=== PATIENT | female | born 1940 | race Caucasian/White ===

== ENCOUNTER 2016-12-25 00:45 | Emergency (ER) | payer MEDICARE, BC ==
[2016-12-25 01:04] VITALS: TEMP 95.9
[2016-12-25] MEDS ORDERED: KETOROLAC TROMETHAMINE INJ 30 MG/ML VIAL IM ONE (01:23)
[2016-12-25] MEDS ORDERED: SIMETHICONE 80 MG TAB PO ONE (01:51)
--- NOTE | 2016-12-25 01:58 | RAD ---
Procedure: XR ABDOMEN 2 VIEWS SUPINE ERECT Exam Date: 12/25/2016 Ordering Provider: Fransisco Orellana Clinical Indication: right lower rib/flank pain Comparison: 11/08/2013 Findings: There is no small or large bowel distention. There is no pneumoperitoneum. There are no suspicious calcifications. Pelvic phleboliths. There is no acute skeletal abnormality. Impression: 1. No acute findings. Electronically signed by: Dallas Toledo MD 12/25/2016 1:57 AM CDT
[2016-12-25] MEDS ORDERED: MAGNESIUM HYDROXIDE 30 ML UD PO ONE (02:08)
--- NOTE | 2016-12-25 02:17 | ED.PDOC ---
History of Present Illness - General Chief Complaint: Back Pain or Injury Stated Complaint: upper back pain, short of breath Time Seen by Provider: 12/25/16 01:11 Source: patient, family Exam Limitations: no limitations - History of Present Illness Initial Comments: the patient is a 76-year-old female presenting to the emergency room secondary toright mid abdomen and flank discomfort present for the last 4-6 hours. No nausea vomiting or diarrhea. No fevers. No tenderness to palpation of the rib cage or the right upper quadrant. No costovertebral angle tenderness to palpation. No bruising. No rash. No recent illnesses. Timing/Duration: 4-6 hours Severity: moderate Improving Factors: nothing Worsening Factors: nothing Associated Symptoms: denies symptoms Allergies/Adverse Reactions: Allergies Doxycycline Allergy (Verified 03/31/14 10:32) Hydromorphone [From Dilaudid] Allergy (Verified 04/02/14 18:06) Naproxen [From Aleve] Allergy (Verified 03/31/14 10:19) Home Medications: Ambulatory Orders Albuterol Sulfate Nebs [Proventil Nebs] 0.083 inh PRN PRN 04/01/14 Magnesium [Magnesium 250 mg] 1 tab PO BEDTIME 04/01/14 Rivaroxaban [Xarelto] 10 mg PO QD #10 tab 04/04/14 Review of Systems - Review of Systems Constitutional: States: no symptoms reported EENTM: States: no symptoms reported Respiratory: States: no symptoms reported Cardiology: States: no symptoms reported Gastrointestinal/Abdominal: States: other - colic Genitourinary: States: no symptoms reported Musculoskeletal: States: back pain Skin: States: no symptoms reported Neurological: States: no symptoms reported Endocrine: States: no symptoms reported Past Medical History (General) - Patient Medical History Hx Seizures: No Hx Stroke: No Hx Asthma: No Hx of COPD: No Hx Cardiac Disorders: No Hx Congestive Heart Failure: No Hx Pacemaker: No Hx Hypertension: No Hx Diabetes: No Hx MRSA: No Surgical History: appendectomy, tonsillectomy, Hysterectomy, other - Vaccination History Hx Tetanus, Diphtheria Vaccination: No Hx Influenza Vaccination: Yes Hx Pneumococcal Vaccination: Yes - Social History Hx Tobacco Use: No Hx Alcohol Use: No Hx Substance Use: No Hx Physical Abuse: No Hx Emotional Abuse: No Family Medical History - Family History Mother Family History: Unknown Living Status: Hx Family;Other: sleeping, unable to answer at this time Physical Exam - Physical Exam General Appearance: Alert, No apparent distress Eye Exam: bilateral normal Ears, Nose, Throat: hearing grossly normal, normal ENT inspection, normal pharynx Neck: full range of motion, supple, normal inspection Respiratory: chest non-tender, lungs clear, normal breath sounds, no respiratory distress, no accessory muscle use, other - no rib cage tenderness to palpation even though part that the discomfort that she feels is underneath the right rib cage Cardiovascular/Chest: normal peripheral pulses, regular rate, rhythm, no edema Peripheral Pulses: radial,right: 2+, radial,left: 2+, dorsalis pedis,right: 2+, dorsalis pedis,left: 2+ Gastrointestinal/Abdominal: non tender, soft, no organomegaly, other - no tenderness to palpation actually but she does report pain under the areas that are pressing. 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, alert, normal mood/affect, oriented x 3 Skin Exam: normal color Comments: Vital Signs - 24 hr 12/25/16 12/25/16 12/25/16 00:56 01:16 02:04 Temperature 95.9 F L Pulse Rate 74 74 82 Pulse Rate [ 74 74 82 left] Respiratory 18 18 Rate Blood Pressure 187/81 159/79 [left] O2 Sat by Pulse 100 97 Oximetry 12/25/16 02:15 Temperature 95.9 F L Pulse Rate Pulse Rate [ 82 left] Respiratory 16 Rate Blood Pressure 147/85 [left] O2 Sat by Pulse 97 Oximetry Laboratory Tests 12/25/16 01:40 Urine Color Yellow Urine Appearance Clear Urine pH 7.0 Ur Specific Proctor 1.010 Urine Protein Negative Urine Glucose (UA) Negative Urine Ketones Negative Urine Blood Negative Urine Nitrite Negative Urine Bilirubin Negative Urine Urobilinogen 0.2 Ur Leukocyte Esterase Trace H Urine RBC 0-1 Urine WBC 1-3 Ur Epithelial Cells 5-10 Urine Bacteria Rare abdominal series shows fairly extensive amount of gas throughout the colon and small intestine without any definite obstruction. Moderate scattered stool as well. Progress - Progress Progress: 12/25/16 02:18 the patient is a 76-year-old female presenting with moderate right- sided abdominal pain that is clinically and by x-ray most consistent with colic from gaseous distention of the bowel. The patient was given a couple doses of simethicone and a dose of milk of magnesia. She is to ambulate when she gets home. At this point in time there is no evidence of any overlying rash to indicate any shingles. No tenderness to palpation to indicate diverticulitis or cholecystitis. No improvement of pain with Toradol to indicate active inflammation. Gas-X and Maalox can be used additionally as needed to help reduce symptoms. She needs to keep well-hydrated. If the pain persists for more than another 12 hours in spite of the above measures then a repeat evaluation may be warranted. eR warnings were given. Departure - Departure Clinical Impression: Colicky RUQ abdominal pain Disposition: Discharge to Home or Self Care Condition: Fair Departure Forms: ED Discharge - Pt. Copy, Patient Portal Self Enrollment Instructions: DI for Low Back Pain Diet: bland diet Activity: increase activity as tolerated Referrals: Tanner Roberts MD [Primary Care Provider] - 1-2 Weeks Home Medications: Ambulatory Orders Albuterol Sulfate Nebs [Proventil Nebs] 0.083 inh PRN PRN 04/01/14 Magnesium [Magnesium 250 mg] 1 tab PO BEDTIME 04/01/14 Rivaroxaban [Xarelto] 10 mg PO QD #10 tab 04/04/14 Additional Instructions: the patient is a 76-year-old female presenting with moderate right- sided abdominal pain that is clinically and by x-ray most consistent with colic from gaseous distention of the bowel. The patient was given a couple doses of simethicone and a dose of milk of magnesia. She is to ambulate when she gets home. At this point in time there is no evidence of any overlying rash to indicate any shingles. No tenderness to palpation to indicate diverticulitis or cholecystitis. No improvement of pain with Toradol to indicate active inflammation. Gas-X and Maalox can be used additionally as needed to help reduce symptoms. She needs to keep well-hydrated. If the pain persists for more than another 12 hours in spite of the above measures then a repeat evaluation may be warranted. eR warnings were given. she should follow-up with her primary care doctor later this week otherwise.
[2016-12-25 02:25] VITALS: BP 147/85; O2SAT 97
== END 2016-12-25 02:26 | disposition home or self-care (01) ==
LOC: ER 00:45
DX: R10.11 Right upper quadrant pain (principal); Z88.6 Allergy status to analgesic agent
CPT/HCPCS: 74020; 81001; J1885

== ENCOUNTER → 2017-07-03 | Outpatient (CLI) | payer MEDICARE ==
--- NOTE | 2017-07-03 16:29 | US ---
EXAM DESCRIPTION: Venous,Lower Extremity LT CLINICAL HISTORY: 76 years, Female, PAIN IN LEFT LOWER LEG COMPARISON: None. FINDINGS: Duplex imaging of the deep venous system of both lower extremities was performed with visualization from the common femoral veins to the popliteal veins and proximal common veins. There is normal compressibility, augmentation and flow with no visualized thrombus. Hypoechoic collection measuring 4.0 x 2.1 x 0.8 cm in the popliteal fossa, likely representing a popliteal/Gordon's cyst. IMPRESSION: No DVT. 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 Electronically signed by: Bryan Faustin MD 07/03/2017 4:28 PM CDT
== END ==
LOC: US 11:26
PROVIDERS: ATTEND Family Medicine
DX: M79.662 Pain in left lower leg (principal); M71.22 Synovial cyst of popliteal space [Baker], left knee

== ENCOUNTER → 2017-09-25 | Outpatient (CLI) | payer MEDICARE | LOC: GMAB 12:10 | PROVIDERS: ATTEND Family Medicine | DX: Z79.899 Other long term (current) drug therapy (principal) ==

== ENCOUNTER → 2018-02-12 | Outpatient (CLI) | payer MEDICARE ==
--- NOTE | 2018-02-13 08:38 | US ---
THYROID ULTRASOUND CLINICAL INFORMATION: Nontoxic single thyroid nodule TECHNIQUE: Sonogram of the thyroid gland was performed COMPARISON: None FINDINGS: Thyroid size: Right thyroid lobe measures 3.8 x 2 x 1.9 cm. The left thyroid lobe measures 4.2 x 1.3 x 1.5 cm. Thyroid isthmus measures 3 mm in thickness. Texture: Coarse with nodules Estimated total number of nodules >/=1 cm: 4 Right In the right thyroid lobe, an upper pole nodule measures 0.9 x 0.6 x 1 cm. This is sonographically solid. No definite internal microcalcifications. At this size, this could be followed up in one year. Multiple small subcentimeter nodules are present throughout the right thyroid lobe consistent with multinodular goiter. These are in the 4 to 6 mm size range. In the lower right thyroid lobe, another nodule is seen with cystic and solid components measuring 1.4 x 0.9 x 1.6 image. No internal microcalcifications. At this size, sonographic guided fine needle aspiration biopsy might be considered. Left Mid to lower posterior left thyroid nodule with cystic and solid components measures 1.1 x 0.8 x 0.8 cm. No internal microcalcifications. This could be followed in one year. In the anterior mid to upper left lobe, another nodule is seen with cystic and solid components measuring 1.6 x 1 x 1.2 cm. No internal microcalcifications. At this size, fine-needle aspiration biopsy with ultrasound guidance might be considered. Impression: Multinodular goiter with nodules measured above. Two nodules greater than 1.5 cm could be further evaluated with sono guided fine-needle aspiration biopsy. Electronically signed by: Ruy Pastrana MD 02/13/2018 8:36 AM [facility]
== END ==
LOC: US 14:27
PROVIDERS: ATTEND Family Medicine
DX: E04.1 Nontoxic single thyroid nodule (principal)

== ENCOUNTER 2018-04-04 15:51 | Emergency (ER) | payer MEDICARE ==
[2018-04-04] MEDS ORDERED: POVIDONE IODINE 10 % 15 ML UD TOP ONE (16:09)
[2018-04-04] MEDS ORDERED: TETANUS,DIPHTHERIA,PERTUSSIS 1 EA SYG IM ONE (16:14)
--- NOTE | 2018-04-04 16:18 | ED.PDOC ---
History of Present Illness - General Chief Complaint: Skin/Abrasion/Tear Stated Complaint: s/p fall,skin tear to RF Time Seen by Provider: 04/04/18 16:14 Source: patient Exam Limitations: no limitations - History of Present Illness Initial Comments: SLIPPED AND FELL ON AN ICE PATCH, NOW C/O SKIN TEAR TO THE RIGHT FOREARM. FELL ON HER BUTTOCKS. SHE HAS BEEN ABLE TO WALK. C/O OF NO OTHER INJURIES. SHE TAKES NO BLOOD THINNERS. Timing/Duration: 1 hour Severity: mild Improving Factors: immobilization Worsening Factors: movement Associated Symptoms: denies symptoms Allergies/Adverse Reactions: Allergies Doxycycline Allergy (Verified 03/31/14 10:32) Hydromorphone [From Dilaudid] Allergy (Verified 04/02/14 18:06) Naproxen [From Aleve] Allergy (Verified 03/31/14 10:19) Home Medications: Ambulatory Orders Albuterol Sulfate Nebs [Proventil Nebs] 0.083 inh PRN PRN 04/01/14 Meloxicam [Mobic] 7.5 mg PO DAILY 04/04/18 Montelukast [Singulair] 10 mg PO BEDTIME 04/04/18 Review of Systems - Review of Systems Constitutional: States: no symptoms reported EENTM: States: no symptoms reported Respiratory: States: no symptoms reported Cardiology: States: no symptoms reported Gastrointestinal/Abdominal: States: no symptoms reported Genitourinary: States: no symptoms reported Musculoskeletal: States: other - RIGHT FOREARM PAIN Skin: States: other - SKIN TEAR TO THE VOLAR ASPECT RIGHT FOREARM. Neurological: States: no symptoms reported Endocrine: States: no symptoms reported Hematologic/Lymphatic: States: no symptoms reported Past Medical History (General) - Patient Medical History Hx Seizures: No Hx Stroke: No Hx Asthma: No Hx of COPD: No Hx Cardiac Disorders: No Hx Congestive Heart Failure: No Hx Pacemaker: No Hx Hypertension: No Hx Diabetes: No Hx MRSA: No Surgical History: appendectomy, tonsillectomy, Hysterectomy - Vaccination History Hx Tetanus, Diphtheria Vaccination: - unknown Hx Influenza Vaccination: Yes Hx Pneumococcal Vaccination: Yes - Social History Hx Tobacco Use: No Hx Alcohol Use: No Hx Substance Use: No Hx Physical Abuse: No Hx Emotional Abuse: No Family Medical History - Family History Mother Family History: Unknown Living Status: Hx Family;Other: sleeping, unable to answer at this time Physical Exam - Physical Exam General Appearance: Alert, Anxious, Well Developed, Well Hydrated Eye Exam: bilateral normal Ears, Nose, Throat: hearing grossly normal, normal pharynx Neck: non-tender, supple, normal inspection Respiratory: chest non-tender, lungs clear, normal breath sounds, no respiratory distress, no accessory muscle use Cardiovascular/Chest: normal peripheral pulses, regular rate, rhythm, no edema, no gallop, no JVD, no murmur Peripheral Pulses: radial,right: 2+, radial,left: 2+ Gastrointestinal/Abdominal: normal bowel sounds, non tender Rectal Exam: deferred Back Exam: normal inspection Extremity: other - SKIN TEAR TO THE RIGHT FOREARM, VOLAR ASPECT- 10 CM IN LENGTH. NO ACTIVE BLEEDING NOTED. Neurologic: normal mood/affect, oriented x 3 Skin Exam: warm/dry Lymphatic: no adenopathy Departure - Departure Clinical Impression: Skin tear of right forearm without complication Qualifiers: Encounter type: initial encounter Qualified Code(s): S51.811A - Laceration without foreign body of right forearm, initial encounter Time of Disposition: 16:21 Disposition: Discharge to Home or Self Care Condition: Good Departure Forms: ED Discharge - Pt. Copy, Patient Portal Self Enrollment Instructions: Wound Care (DC) Activity: increase activity as tolerated Referrals: IAN STEPHEN MD [Primary Care Provider] - 1-2 Weeks Home Medications: Ambulatory Orders Albuterol Sulfate Nebs [Proventil Nebs] 0.083 inh PRN PRN 04/01/14 Meloxicam [Mobic] 7.5 mg PO DAILY 04/04/18 Montelukast [Singulair] 10 mg PO BEDTIME 04/04/18
[2018-04-04] MEDS ORDERED: NEOMYCIN-BACITRACIN-POLYMYXIN 0.9 GM UD TOP ONE (16:29)
[2018-04-04 16:49] VITALS: BP 159/83; TEMP 97.8; O2SAT 97
== END 2018-04-04 16:45 | disposition home or self-care (01) ==
LOC: ER 15:51
DX: S51.811A Laceration without foreign body of right forearm, initial encounter (principal); W00.0XXA Fall on same level due to ice and snow, initial encounter; Z23 Encounter for immunization; Z88.8 Allergy status to other drugs, medicaments and biological substances; Z88.6 Allergy status to analgesic agent; Y92.9 Unspecified place or not applicable

== ENCOUNTER → 2018-05-17 | Outpatient (CLI) | payer MEDICARE ==
--- NOTE | 2018-05-17 10:32 | RAD ---
EXAM DESCRIPTION: Hand,Right 3 Views (accession [id number]), Hand,Left 3 Views (accession [id number]) CLINICAL HISTORY: M79.61,M79.642 COMPARISON: None Available. TECHNIQUE: Three views of each hand FINDINGS: Three views of the left hand demonstrate predominant osteoarthritic changes with marginal osteophytes and hypertrophic spurring most evident at the base of the thumb at the carpal metacarpal articulation and to a modest degree involving the MCP joints of the index and long finger. Significant destructive and/or marked erosive changes or other changes to suggest a marked inflammatory arthropathy or ulnar styloid erosion is not apparent. The bones are mildly osteopenic. Three views of the right hand demonstrate very slight ulnar deviation of the fingers with hypertrophic degenerative changes at the third and to lesser extent second MCP joint. There is milder degenerative arthropathy at the CMC joint at the base of the thumb. An accessory ossicle at the tip of the ulnar styloid suggests possibly an old fracture with nonunion. Again the typical periarticular demineralization and cortical destructive changes and cystic erosions of an advanced inflammatory arthropathy is not apparent. Bilaterally moderate degenerative joint disease involving the interphalangeal joint of each thumb is also noted. IMPRESSION: 1. Predominant pattern of degenerative joint disease, left hand greater than right and most significantly involving the CMC joints of each thumb as well as the MCP joints of the third digit and second digits bilaterally. 2. Typical destructive or erosive changes of advanced inflammatory arthropathy are not apparent with only mild generalized osteopenia noted. There is slight ulnar deviation of the fingers of the right hand but other advanced stigmata of rheumatoid arthritis is not apparent. Electronically signed by: Carrillo Cain MD 05/17/2018 10:30 AM [facility]
--- NOTE | 2018-05-17 10:32 | RAD ---
EXAM DESCRIPTION: Hand,Right 3 Views (accession [id number]), Hand,Left 3 Views (accession [id number]) CLINICAL HISTORY: M79.61,M79.642 COMPARISON: None Available. TECHNIQUE: Three views of each hand FINDINGS: Three views of the left hand demonstrate predominant osteoarthritic changes with marginal osteophytes and hypertrophic spurring most evident at the base of the thumb at the carpal metacarpal articulation and to a modest degree involving the MCP joints of the index and long finger. Significant destructive and/or marked erosive changes or other changes to suggest a marked inflammatory arthropathy or ulnar styloid erosion is not apparent. The bones are mildly osteopenic. Three views of the right hand demonstrate very slight ulnar deviation of the fingers with hypertrophic degenerative changes at the third and to lesser extent second MCP joint. There is milder degenerative arthropathy at the CMC joint at the base of the thumb. An accessory ossicle at the tip of the ulnar styloid suggests possibly an old fracture with nonunion. Again the typical periarticular demineralization and cortical destructive changes and cystic erosions of an advanced inflammatory arthropathy is not apparent. Bilaterally moderate degenerative joint disease involving the interphalangeal joint of each thumb is also noted. IMPRESSION: 1. Predominant pattern of degenerative joint disease, left hand greater than right and most significantly involving the CMC joints of each thumb as well as the MCP joints of the third digit and second digits bilaterally. 2. Typical destructive or erosive changes of advanced inflammatory arthropathy are not apparent with only mild generalized osteopenia noted. There is slight ulnar deviation of the fingers of the right hand but other advanced stigmata of rheumatoid arthritis is not apparent. Electronically signed by: Carrillo Cain MD 05/17/2018 10:30 AM [facility]
== END ==
LOC: RAD 08:26
PROVIDERS: ATTEND Orthopaedic Surgery
DX: M79.641 Pain in right hand (principal); M79.642 Pain in left hand

== ENCOUNTER → 2018-05-18 | Outpatient (CLI) | payer MEDICARE ==
[~2018-05-18] MED LIST: IPRATROPIUM/ALBUTEROL 3 ML VIAL NEB ONE
== END ==
LOC: RESP 09:48
PROVIDERS: ATTEND Family Medicine
DX: Z01.818 Encounter for other preprocedural examination (principal); R06.2 Wheezing
CPT/HCPCS: 87070; 94060; J7620

== ENCOUNTER 2018-06-05 05:31 | Day surgery (SDC) | payer MEDICARE ==
--- NOTE | 2018-06-04 10:12 | HP ---
CHIEF COMPLAINT: Right hand numbness. HISTORY OF PRESENT ILLNESS: Sonya is a 77-year-old female with a history of pain and numbness in the hand. She has had this going on for years and has been getting progressively worse. She very often has pain and numbness at rest. She denies any trauma related to this. Because of her ongoing discomfort, but lack of relief with conservative measures, she has requested operative intervention. After discussing the risks, benefits and alternatives to that, she has given informed consent. PAST SURGICAL HISTORY: 1. Hysterectomy. 2. Total knee arthroplasty. MEDICATIONS: 1. Singulair. 2. Mobic. 3. Vitamins. ALLERGIES: ALEVE, MORPHINE. CODE STATUS: Full code. IMMUNIZATIONS: Up to date. FAMILY HISTORY: None pertinent to today's complaint. REVIEW OF SYSTEMS: Negative except as indicated in the History of Present Illness. PHYSICAL EXAMINATION: VITAL SIGNS: Blood pressure 128/84. Pulse 83. Height 5'5". Weight 147 pounds. MENTAL STATUS: The patient is awake, alert, and is able to give a good history and participate in the physical. The patient is oriented to person, place and time. SKIN: Normal tone and turgor. MUSCULOSKELETAL: She has positive carpal compression test which worsens her symptoms, but she does have some pain at rest. She has bilateral thenar atrophy. She has intact cognos lead strength. Both extremities are warm and well perfused. She has intact abduction strength. There is no overall malalignment or deformity. ASSESSMENT: 1. Carpal tunnel syndrome. PLAN: The plan at this point is for carpal tunnel release. We have discussed the risks, benefits, and alternatives to that and the patient has given informed consent. #[id number] [facility]
[2018-06-05] MEDS ORDERED: SODIUM CHL 0.9% 100ML MINI-BAG 100 ML IVPB ONE (06:09)
[2018-06-05] MEDS ORDERED: LACTATED RINGERS 1,000 ML ONE (06:09)
[2018-06-05] MEDS ORDERED: ceFAZolin SODIUM 1 GM VIAL ONE (06:09)
[2018-06-05] MEDS ORDERED: BUPIVACAINE 0.25% INJ 30 ML VIAL INJ ONE (07:58)
[2018-06-05] MEDS ORDERED: LIDOCAINE 1% 10 ML VIAL INJ ONE ×2 (07:58→10:00)
[2018-06-05] MEDS ORDERED: fentaNYL CITRATE INJ 50 MCG/ML AMP ONE (09:31)
[2018-06-05] MEDS ORDERED: PROPOFOL 200 MG/20 ML VIAL IV ONE (10:00)
[2018-06-05] MEDS: VANCOMYCIN HCL INJ 1,000 MG VIAL IVPB ONE ×2 (10:06→10:20)
[2018-06-05] MEDS: ceFAZolin SODIUM 1 GM VIAL ONE ×2 (10:06→10:20)
[2018-06-05] MEDS ORDERED: HYDROcodone 5MG/APAP 325MG 1 EA TAB ONE (11:01)
[2018-06-05 12:27] VITALS: BP 152/67; TEMP 97.5; O2SAT 99
--- NOTE | 2018-06-06 10:43 | OP ---
DATE OF PROCEDURE: 06/05/18 PREOPERATIVE DIAGNOSIS: 1. Carpal tunnel syndrome. POSTOPERATIVE DIAGNOSIS: 1. Carpal tunnel syndrome. PROCEDURE: 1. Carpal tunnel release. SURGEON: Juancarlos Post MD. ELECTRONIC SYSTEMS TECHNICIAN: Alverto Warren CST, -C. ANESTHESIA: Local with sedation. COMPLICATIONS: None. FINDINGS: 1. Narrowing of the median nerve across the carpal tunnel. 2. Thenar atrophy. INDICATION: Ms. Lay has a history of pain in the wrist with some associated numbness. Because of her pain and numbness, she has requested operative intervention. She has failed more conservative measures. After discussing the risks, benefits and alternatives to operative intervention, the patient has given informed consent for carpal tunnel release. PROCEDURE: The patient was brought to the Operating Room and placed in the supine position. Sedation was administered and local anesthetic was injected into the operative area under sterile conditions. After the injection of anesthetic, the arm was sterilely prepped and draped. A longitudinal incision was made directly overlying the transverse carpal ligament and blunt dissection was carried down to the ligament. The transverse carpal ligament was sharply transected along its length and a Warren elevator was used to ensure complete release of the ligament. Once release had been confirmed, the wound was thoroughly irrigated and the wound was closed with Nylon suture. A sterile dressing was placed and the patient was taken to the Day Surgery Unit. POSTOPERATIVE PLAN: The patient has been encouraged to do range of motion of the digits and will followup with us in approximately two days. #[id number] [facility]
== END 2018-06-05 12:00 | disposition home or self-care (01) ==
LOC: AMB 05:31
PROVIDERS: ATTEND Orthopaedic Surgery
DX: G56.01 Carpal tunnel syndrome, right upper limb (principal); J44.9 Chronic obstructive pulmonary disease, unspecified; Z88.5 Allergy status to narcotic agent; Z88.6 Allergy status to analgesic agent; Z90.710 Acquired absence of both cervix and uterus; Z96.659 Presence of unspecified artificial knee joint; Z79.899 Other long term (current) drug therapy
CPT/HCPCS: 01810; 64721; 80307; 94060; J0690; J3010; J3370; J3490; J7050; J7120

== ENCOUNTER → 2018-09-24 | Outpatient (CLI) | payer MEDICARE | LOC: LAB.O 10:29 | PROVIDERS: ATTEND Orthopaedic Surgery | DX: Z01.818 Encounter for other preprocedural examination (principal) ==

== ENCOUNTER 2018-10-10 05:36 | Day surgery (SDC) | payer MEDICARE ==
--- NOTE | 2018-10-08 09:02 | HP ---
CHIEF COMPLAINT: Left hand numbness. HISTORY OF PRESENT ILLNESS: Sonya is a 77-year-old female with a history of numbness in the left hand associated with some pain. She has had right carpal tunnel release which was successful for her. At this point, she has numbness when she is driving and also at night that wakes her up. She has been wearing braces which have not given her any relief. She has had no trauma related to this and denies any symptoms proximal to the wrist. The numbness is disrupting her activities and she has requested surgical intervention. After discussing the risks, benefits and alternatives to that, she has given informed consent. PAST SURGICAL HISTORY: 1. Hysterectomy. 2. Total knee arthroplasty. 3. Carpal tunnel release. MEDICATIONS: 1. Singulair. 2. Mobic. 3. Vitamins. ALLERGIES: ALEVE, MORPHINE. CODE STATUS: Full code. IMMUNIZATIONS: Up to date. SOCIAL HISTORY: The patient does not drink, smoke or use any illicit drugs. FAMILY HISTORY: None pertinent to today's complaint. REVIEW OF SYSTEMS: Negative except as indicated in the History of Present Illness. PHYSICAL EXAMINATION: VITAL SIGNS: Blood pressure 131/68. Pulse 83. Height 5'5". Weight 150 pounds. MENTAL STATUS: The patient is awake, alert, and is able to give a good history and participate in the physical. The patient is oriented to person, place and time. SKIN: Normal tone and turgor. HEENT: Normocephalic, atraumatic. Pupils equal, round and reactive. Mucosal membranes are moist. NECK: Normal range of motion. No thyromegaly, no lymphadenopathy. CHEST: Normal respiratory excursion. CARDIAC: Regular rate and rhythm. No murmurs, rubs or gallops. MUSCULOSKELETAL: The bilateral lower extremities show full active range of motion without pain. She has intact sensation and they are warm and well perfused. She has no deformity. She walks with a normal gait. There is no malalignment. The right upper extremity shows full range of motion of the shoulder, elbow, wrist and digits. Sensation is intact. It is warm and well perfused. There is no deformity. Training Instructor strength is 5/5. The left upper extremity shows full range of motion of the shoulder, elbow, wrist and digits. She has some thenar atrophy on that side. She has positive carpal compression test and positive Tinel's. She does have some arthritic deformities at the IP joints. ASSESSMENT: 1. Carpal tunnel syndrome. PLAN: The plan at this point is for carpal tunnel release. We have discussed the risks, benefits, and alternatives to that and the patient has given informed consent. #[id number] [facility]
[2018-10-10] MEDS ORDERED: LACTATED RINGERS 1,000 ML ONE (06:10)
[2018-10-10] MEDS ORDERED: SODIUM CHL 0.9% 100ML MINI-BAG 100 ML IVPB ONE (06:10)
[2018-10-10] MEDS ORDERED: ceFAZolin SODIUM 1 GM VIAL ONE ×2 (06:11→09:20)
[2018-10-10] MEDS ORDERED: VANCOMYCIN HCL INJ 1,000 MG VIAL IVPB ONE (09:20)
[2018-10-10] MEDS ORDERED: BUPIVACAINE 0.25% INJ 30 ML VIAL INJ ONE (09:20)
[2018-10-10] MEDS: LIDOCAINE 1% 50 ML VIAL INJ ONE ×2 (09:50→10:07)
[2018-10-10] MEDS ORDERED: LIDOCAINE 1% 10 ML VIAL INJ ONE (10:00)
[2018-10-10] MEDS ORDERED: PROPOFOL 200 MG/20 ML VIAL IV ONE (10:00)
[2018-10-10] MEDS ORDERED: HYDROcodone 5MG/APAP 325MG 1 EA TAB ONE (10:48)
[2018-10-10 13:34] VITALS: BP 181/74; TEMP 97.3; O2SAT 97
--- NOTE | 2018-10-11 09:27 | OP ---
DATE OF PROCEDURE: 10/10/18 PREOPERATIVE DIAGNOSIS: 1. Left carpal tunnel syndrome. POSTOPERATIVE DIAGNOSIS: 1. Left carpal tunnel syndrome. PROCEDURE: 1. Left carpal tunnel release. SURGEON: Juancarlos Post MD. LUMBER INSPECTOR: Alverto Warren CST, SA-C. ANESTHESIA: Local with sedation. COMPLICATIONS: None. FINDINGS: Narrowing of the median nerve across the carpal tunnel and thickened transverse carpal ligament. INDICATION: Ms. Lay has a long history of symptoms consistent with carpal tunnel syndrome. She has failed conservative measures and to that end, has requested operative intervention. After discussing the risks, benefits and alternatives to that, the patient has given informed consent for carpal tunnel release. PROCEDURE: The patient was brought to the Operating Room and placed in the supine position. Sedation was administered and local anesthetic was injected into the operative area under sterile conditions. After the injection of anesthetic, the arm was sterilely prepped and draped. A longitudinal incision was made directly overlying the transverse carpal ligament and blunt dissection was carried down to the ligament. The transverse carpal ligament was sharply transected along its length and a Esperance elevator was used to ensure complete release of the ligament. Once release had been confirmed, the wound was thoroughly irrigated and the wound was closed with Nylon suture. A sterile dressing was placed and the patient was taken to the Day Surgery Unit. POSTOPERATIVE PLAN: The patient has been encouraged to do range of motion of the digits and will followup with us in two days. #[id number] [facility]
== END 2018-10-10 12:13 | disposition home or self-care (01) ==
LOC: AMB 05:36
PROVIDERS: ATTEND Orthopaedic Surgery
DX: G56.02 Carpal tunnel syndrome, left upper limb (principal); Z90.710 Acquired absence of both cervix and uterus; Z96.659 Presence of unspecified artificial knee joint; Z79.899 Other long term (current) drug therapy
CPT/HCPCS: 01810; 64721; 80307; J0690; J3370; J3490; J7050; J7120

== ENCOUNTER → 2019-11-26 | Outpatient (CLI) | payer MEDICARE ==
--- NOTE | 2019-11-27 19:12 | MAM ---
EXAM DESCRIPTION: 3D Screening BILATERAL : Digital Mammography. CLINICAL HISTORY: 78 years Female ANNUAL SCREENING . No complaints. Chronic inverted nipple right breast Remote family history of breast cancer. Menarche age 11. Childbirth age 18. Menopause age 42. HRT 5 or more years ago.. Lifetime risk of developing breast cancer (Tyrer-Cuzick model)(%): Not calculated COMPARISON: Bilateral screening digital breast tomosynthesis November 2018.. 2-D digital screening bilateral mammography October 2017. 3-D digital screening bilateral mammography December 2014. TECHNIQUE: Bilateral CC and MLO projection full-field images, digital tomosynthesis mammographic technique. Bilateral digital 2-D full-field MLO images. CAD available for 2-D images. FINDINGS: The breast parenchymal density pattern is: Scattered areas of fibroglandular density. No skin thickening or left breast nipple retraction. Inverted right breast nipple. Intramammary lymph nodes. Vascular calcifications. Solitary microcalcifications. Skin mole marker left breast. No new focal, stellate mass or density, focal asymmetry , and no suspicious microcalcifications . Stable mammograms compared to prior study. IMPRESSION: Benign exam. BIRAD CATEGORY: 2 BENIGN FINDINGS. RECOMMENDATIONS: FOLLOW UP: Routine digital bilateral mammographic screening, one year interval from November 2019. Written communication explaining the IMPRESSION and follow-up, will be mailed to the patient and referring health care provider. According to the [employer], yearly mammograms are recommended starting at age 40 and continuing as long as a woman is in good health. Any breast change noted on a breast self-exam should be reported promptly to the patient's healthcare provider. Breast MRI is recommended for women with an approximately 20-25% or greater lifetime risk of breast cancer, including women with a strong family history of breast or ovarian cancer and women who have been treated for Hodgkin's disease. A negative mammographic report should not delay tissue diagnosis in patients with significant clinical history or physical findings. Extremely dense breast tissue limits the sensitivity of digital mammography. Electronically signed by: Alverto Hdz MD 11/27/2019 7:10 PM CDT
== END | disposition home or self-care (01) ==
LOC: MAMMO 11:00
PROVIDERS: ATTEND Family Medicine
DX: Z12.31 Encounter for screening mammogram for malignant neoplasm of breast (principal)

== ENCOUNTER → 2020-01-28 | Outpatient (CLI) | payer MEDICARE | LOC: LAB.O 11:40 | PROVIDERS: ATTEND Nurse Practitioner Acute Care | DX: R19.7 Diarrhea, unspecified (principal) ==